=== PATIENT | female | born 1980 | race Caucasian/White ===

== ENCOUNTER 2018-01-28 14:49 | Emergency (ER) | payer BC ==
[~2018-01-28] VITALS: Ht 160 cm; Wt 82.5 kg
[2018-01-28 14:52] VITALS: Ht 160 cm; Wt 82.5 kg
[2018-01-28 16:21] VITALS: BP 114/72
== END 2018-01-28 16:21 | disposition home or self-care (01) ==
LOC: ED 14:49
DX: R19.7 Diarrhea, unspecified (principal); R10.13 Epigastric pain; R50.9 Fever, unspecified; R11.2 Nausea with vomiting, unspecified
CPT/HCPCS: J1885; J2405